=== PATIENT | female | born 1975 | race Caucasian/White ===

== ENCOUNTER 2016-08-01 22:38 | Emergency (ER) | payer BC ==
[2016-08-01 23:49] LABS: SPECIFIC GRAVITY 1.015 (1.001-1.030); URINE BILIRUBIN NEGATIVE (NEGATIVE); URINE BLOOD NEGATIVE (NEGATIVE); URINE GLUCOSE (UA) NEGATIVE (NEGATIVE); URINE LEUKOCYTE ESTERASE NEGATIVE (NEGATIVE); URINE NITRITE NEGATIVE (NEGATIVE); URINE PROTEIN NEGATIVE (NEGATIVE); URINE UROBILINOGEN NORMAL (0-1 mg/dl)
[2016-08-01 23:52] LABS: HCG,QUALITATIVE URINE NEGATIVE; URINE APPEARANCE CLEAR; URINE COLOR YELLOW
[2016-08-02] MEDS ORDERED: KETOROLAC TROMETHAMINE 30 MG/ML 1 ML VIAL ONE (00:46)
[2016-08-02] MEDS ORDERED: ONDANSETRON 4 MG/2ML 2 ML VIAL ONE (00:46)
[2016-08-02] MEDS ORDERED: SODIUM CHLORIDE 0.9% 1,000 ML ONE (00:46)
[2016-08-02 01:21] LABS: ABSOLUTE NEUTROPHIL COUNT 7.3 K/mm3 (1.8-7.7); BASO % 0.1 % (0.2-1.0); HEMATOCRIT 38.8 % (37.0-47.0); HEMOGLOBIN 12.8 gm/l (12.0-16.0); IMM NEUT% 0.4 % (0-1); LYMPH # 0.8 (1.0-4.8); LYMPH % 9.8 % (15-45); MEAN CELL VOLUME 86.6 fl (81.0-99.0); MEAN CORPUSCULAR HEMOGLOBIN 28.6 pg (27.0-31.0); MEAN PLATELET VOLUME 9.7 fl (7.4-10.4); MONO # 0.1 (0.0-0.8); MONO % 0.7 % (4-12); PLATELET COUNT 272 K/mm3 (130-400); RED CELL DISTRIBUTION WIDTH 11.9 % (11.5-14.5)
[2016-08-02 01:35] LABS: ALB/GLOB RATIO 1.5 (>1.0); ALBUMIN 4.5 gm/dL (3.5-5.7); ALT/SGPT 11 U/L (7-52); BLOOD UREA NITROGEN 10 mg/dL (7-25); BUN/CREATININE RATIO 14 (6-20); C-REACTIVE PROTEIN < 0.3 mg/dl (<1.0); CALCIUM 9.4 mg/dL (8.6-10.3); GLOMERULAR FILTRATION RATE 93 mL/min (60-99); LIPASE 17 U/L (11-82)
[2016-08-02] MEDS ORDERED: HYDROCODONE/ACETAMINOPHEN 5/325MG TABLET ONE (04:43)
[2016-08-02] MEDS ORDERED: DIPHENHYDRAMINE HCL 50 MG/1 ML VIAL ONE (04:43)
[2016-08-02] MEDS ORDERED: HALOPERIDOL LACTATE 5 MG/1 ML AMP ONE (04:44)
--- NOTE | 2016-08-02 07:44 | US ---
Name: SHEFALI MURGUIA Exam: Pelvic ultrasound Comparison: 05/05/2016 Clinical history: Right lower quadrant pain Findings: Transabdominal and endovaginal imaging of the pelvis was performed. Visualized bladder is normal. The uterus is surgically absent. Right ovary measures 3.0 x 2.8 by point 0.8 cm with a volume of 7.8 cc. Left ovary measures 2.5 x 2.4 x 1.8 cm with a volume of 5.4 cc. Small ovarian follicles are identified bilaterally. There is blood flow in both ovaries. There is no suspicious adnexal mass or fluid collection. There is no free fluid. Impression: 1. Prior hysterectomy 2. Normal ultrasound appearance of the adnexa 3. No free fluid Note: Findings were transmitted to the emergency department from [facility] 0441 hours
--- NOTE | 2016-08-02 07:45 | US ---
Name: SHEFALI MURGUIA Exam: Limited abdominal ultrasound Comparison: None Clinical history: Right lower quadrant pain Findings: Graded compression of the right lower quadrant was performed. The appendix is identified and the diameter ranges between 4.1 and 5.2 mm in size. The end of the appendix is included on this exam. There is fluid within the appendix appendix is compressible. There is no periappendiceal fluid. There is no adenopathy or abscess. There is no guarding or tenderness with this exam. Impression: Normal ultrasound of the appendix Note: Findings were transmitted to the emergency department from [facility] at [id number] hours
== END 2016-08-02 05:03 | disposition home or self-care (01) ==
LOC: ED 22:38
DX: R10.2 Pelvic and perineal pain (principal)
CPT/HCPCS: 83690; 81025; 82150; 86141; 85025; 80053; 85651; 81003; 76705; 76856; 76830; 96375; 99284 ×2; 96374; 96361; J1885; J2405; J7030